=== PATIENT | female | born 1990 ===

== ENCOUNTER 2018-02-26 13:31 | Inpatient (IN) | payer OTHER ==
[2018-02-26] MEDS ORDERED: Naloxone 0.4 mg/ml Inj (Adult) ONE ×2 (13:58→14:02)
[2018-02-26 14:08] LABS: HEMOGLOBIN 8.9 g/dL (12.0-16.0); MEAN CELL VOLUME 77.6 fl (81.0-99.0); MEAN CORPUSCULAR HEMOGLOBIN 25.5 pg (27.0-31.0); MEAN CORPUSCULAR HGB CONC 32.8 g/dL (33.0-37.0); RBC 3.49 Mil/uL (3.80-5.20); RED CELL DISTRIBUTION WIDTH 14.2 % (11.5-14.5); WHITE BLOOD COUNT 8.5 K/uL (4.8-10.8)
[2018-02-26] MEDS ORDERED: Iohexol 300 100 ML IJ ONE (14:09)
[2018-02-26] MEDS ORDERED: Sodium Chloride 0.9% 100 ML ONE (14:10)
[2018-02-26 14:11] LABS: PROTHROMBIN TIME 10.6 Seconds (9.8-13.1)
--- NOTE | 2018-02-26 14:14 | ED PDOC ---
Syncope/Near Syncope/Dizziness Time Seen by Provider: 02/26/18 13:43 Chief Complaint (Nursing): Weakness/Neurological Deficit Chief Complaint (Provider): Weakness/Neurological Deficit History Per: Patient History/Exam Limitations: no limitations Onset/Duration Of Symptoms: Mins Current Symptoms Are (Timing): Still Present Activity At Onset Of Symptoms: Sitting (Driving) Associated Symptoms Preceding Syncopal Episode: Lightheadedness Additional Complaint(s): 27 y/o female with an unknown PMHx brought to the ED via EMS for evaluation of a near syncope episode. Patient was driving when she developed low back pain and feeling like she was going to pass out. Patient reports she pulled over and family called 911. Patient reports of having similar episode in the past. Patient states she is approximately 24 weeks and has not had care yet. On arrival to the ED patient appeared diaphoretic and lethargic but is arousable to verbal stimuli. Denies chest pain, shortness of breath, abdominal pain and vaginal bleeding. Patient did have urinary incontinence while in the ED. PMD: Kelvin Rudolph DO Past Medical History Reviewed: Historical Data, Nursing Documentation, Vital Signs Vital Signs: Last Vital Signs Temp 97.8 F 02/26/18 13:35 Pulse 103 H 02/26/18 13:35 Resp 19 02/26/18 13:35 BP 116/59 L 02/26/18 13:35 Pulse Ox 100 02/26/18 13:35 - Medical History PMH: No Chronic Diseases - Surgical History Surgical History: No Surg Hx - Family History Family History: States: Unknown Family Hx - Allergies Allergies/Adverse Reactions: Allergies Allergy/AdvReac Type Severity Reaction Status Date / Time No Known Allergies Allergy Verified 02/26/18 13:35 Review of Systems ROS Statement: Except As Marked, All Systems Reviewed And Found Negative Constitutional: Positive for: Weakness Cardiovascular: Negative for: Chest Pain Respiratory: Negative for: Shortness of Breath Genitourinary Female: Positive for: Incontinence. Negative for: Vaginal Bleeding Musculoskeletal: Positive for: Back Pain (low) Physical Exam - Reviewed Nursing Documentation Reviewed: Yes Vital Signs Reviewed: Yes (REPEAT BP: 89/60) - Physical Exam Appears: Positive for: In Acute Distress Head Exam: Positive for: ATRAUMATIC Skin: Positive for: Diaphoresis (on arrival to the ED), Pallor Eye Exam: Positive for: Other (Pinpoint pupils) Neck: Positive for: Normal Cardiovascular/Chest: Positive for: Regular Rate, Rhythm. Negative for: Murmur Respiratory: Positive for: Normal Breath Sounds. Negative for: Respiratory Distress Gastrointestinal/Abdominal: Positive for: Normal Exam, Other (Gravid). Negative for: Tenderness Back: Positive for: Normal Inspection, Other (Tenderness to palpation to the lower lumbar region. No ecchymosis) Extremity: Positive for: Normal ROM Neurologic/Psych: Positive for: Oriented (x3), Other (lethargic but responsive to verbal stimulti) - Laboratory Results Result Diagrams: 02/27/18 04:20 02/27/18 04:20 - ECG O2 Sat by Pulse Oximetry: 100 (RA) Pulse Ox Interpretation: Normal - Physician Consult Information Time Consulting Physican Contacted: 15:40 Physician Contacted: Reese Hernandez Outcome Of Conversation: Recommends MgSO4 1 g IV once, MRI brain and EEG. No seizure medication needed at this time. - Critical Care Total Time (In Min): 75 Medical Decision Making Medical Decision Making: Time: 1349 Plan: -- CBC -- PT/INR -- CMP -- Type and Screen Time: 1357 Plan: -- US OB Time: 1400 -- OB arrived to evaluate patient. Time: 1410 Plan: -- Arterial Blood Gas -- CT Chest, Abd, Pel w/ IV Contrast -- CT Head w/o Contrast -- Alcohol Serum -- Urine Drug Screen -- US OB , Limited Time: [address] RESULTS FINDINGS: HEMORRHAGE: No intracranial hemorrhage. BRAIN: No mass effect or edema. No atrophy or chronic microvascular ischemic changes. VENTRICLES: Unremarkable. No hydrocephalus. CALVARIUM: Unremarkable. PARANASAL SINUSES: Unremarkable as visualized. No significant inflammatory changes. MASTOID AIR CELLS: Unremarkable as visualized. No inflammatory changes. OTHER FINDINGS: None. IMPRESSION: Normal CT of the Head. Time: 1531 -- Mom and dad at bedside. Patient states she DOES NOT want family members to know of status. Mother states she was in the car with the patient at the time of the incident. Mother reports patient began feeling lightheaded and pulled over to the side of the road, got out and went to the other side of the car. Mother states the patient looked pale and doubled over into her seat twice. Mother was able to get the patient into the back seat and then patient began having seizure activity for approximately 3 minutes. Mother states patient was drooling and her eyes rolled into the back of her head. Mother states seizure activity stopped on its own. Pt reports she is 24 weeks gestation, , care in [place]. Time: 1532 CT CHEST/ABDOMEN/PELVIS RESULTS CT CHEST: FINDINGS: CT CHEST WITH CONTRAST: LUNGS: Clear. No nodule, mass or consolidation. MEDIASTINUM: Unremarkable. Normal caliber aorta and pulmonary arterial trunk. No aortic dissection. Normal size heart. LYMPH NODES: Unremarkable. PLEURA: Unremarkable. No pneumothorax. No pleural fluid. BONES: Unremarkable. OTHER FINDINGS: None. CT ABDOMEN AND PELVIS: LIVER: Unremarkable. No gross lesion or ductal dilatation. GALLBLADDER AND BILE DUCTS: Unremarkable. PANCREAS: Unremarkable. No gross lesion or ductal dilatation. SPLEEN: Unremarkable. ADRENALS: Unremarkable. No mass. KIDNEYS AND URETERS: Unremarkable. No hydronephrosis. No solid mass. VASCULATURE: Unremarkable. No aortic aneurysm. BOWEL: Unremarkable. No obstruction. No gross mural thickening. APPENDIX: Normal appendix. PERITONEUM: Unremarkable. No free fluid. No free air. LYMPH NODES: Unremarkable. No enlarged lymph nodes. BLADDER: Unremarkable. REPRODUCTIVE: Gravid uterus.. BONES: No acute fracture. OTHER FINDINGS: None. IMPRESSION: Gravid utreus. Upon arrival, pt lethargic, pale, diaphoretic, hypotensive. Pt solely c/o low back pain. Bedside OB ultrasound performed, + cardiac activity. Pt arousable to verbal stimuli, oriented X 3. Discussed the risks and benefits of CT head/chest/abd/pelvis and radiation risk to fetus. Pt provided verbal consent to CT as witnessed by RNs present. Time: 15:[address] Barton, recommends Fe 325 mg PO bid, no transfusion, NST q shift, will consult. ____ Scribe Attestation: Documented by Shay Curtis acting as a scribe for Geovanna Almonte MD. Provider Scribe Attestation: All medical record entries made by the Scribe were at my direction and personally dictated by me. I have reviewed the chart and agree that the record accurately reflects my personal performance of the history, physical exam, medical decision making, and the department course for this patient. I have also personally directed, reviewed, and agree with the discharge instructions and disposition. Disposition - Clinical Impression Clinical Impression: New onset seizure - Patient ED Disposition Is Patient to be Admitted: Yes - Disposition Disposition Time: 15:38 Condition: GUARDED - Pt Status Changed To: Hospital Disposition Of: Inpatient - Admit Certification Admit to Inpatient:: After my assessment, the patient will require hospitalization for at least two midnights. This is because of the severity of symptoms shown, intensity of services needed, and/or the medical risk in this patient being treated as an outpatient. - POA Present On Arrival: None
[2018-02-26 14:16] LABS: ALB/GLOB RATIO 0.9 (1.0-2.1); ALBUMIN 3.2 g/dL (3.5-5.0); ALT/SGPT 20 U/L (9-52); AST/SGOT 25 U/L (14-36); BLOOD UREA NITROGEN 5 mg/dl (7-17); GFR NON-AFRICAN AMERICAN > 60
--- NOTE | 2018-02-26 14:29 | CT ---
Date of service: 02/26/2018 PROCEDURE: CT HEAD WITHOUT CONTRAST. HISTORY: Syncope/[place]red Mental Status COMPARISON: None available. TECHNIQUE: Axial computed tomography images were obtained through the head/brain without intravenous contrast. Radiation dose: Total exam DLP = mGy-cm. This CT exam was performed using one or more of the following dose reduction techniques: Automated exposure control, adjustment of the mA and/or kV according to patient size, and/or use of iterative reconstruction technique. FINDINGS: HEMORRHAGE: No intracranial hemorrhage. BRAIN: No mass effect or edema. No atrophy or chronic microvascular ischemic changes. VENTRICLES: Unremarkable. No hydrocephalus. CALVARIUM: Unremarkable. PARANASAL SINUSES: Unremarkable as visualized. No significant inflammatory changes. MASTOID AIR CELLS: Unremarkable as visualized. No inflammatory changes. OTHER FINDINGS: None. IMPRESSION: Normal CT of the Head.
[2018-02-26] MEDS ORDERED: Sodium Chloride 0.9% 1,000 ML IV STA (14:43)
[2018-02-26] MEDS ORDERED: Naloxone 0.4 mg/ml Inj (Adult) IVP STA ×2 (14:43→14:44)
[2018-02-26] MEDS ORDERED: Lactated Ringer's 1,000 ML IV SCH (14:45)
[2018-02-26 15:01] LABS: SQUAMOUS EPITHIAL 35 /hpf (0-5); URINE BACTERIA OCC (<OCC); URINE BILIRUBIN NEGATIVE (NEGATIVE); URINE BLOOD SMALL (NEGATIVE); URINE CLARITY CLOUDY (Clear); URINE COLOR YELLOW (YELLOW); URINE GLUCOSE (UA) 50 mg/dL (Normal); URINE LEUKOCYTE ESTERASE NEG Leu/uL (Negative); URINE PROTEIN >=500 mg/dL (NEGATIVE); URINE UROBILINOGEN 0.2-1.0 mg/dL (0.2-1.0)
[2018-02-26 15:13] LABS: BARBITURATES, UR NEGATIVE (NEGATIVE); BENZODIAZEPINES, UR NEGATIVE (NEGATIVE); OPIATES, UR NEGATIVE (NEGATIVE); PHENCYCLIDINE, UR NEGATIVE (NEGATIVE)
--- NOTE | 2018-02-26 15:33 | CT ---
Date of service: 02/26/2018 PROCEDURE: CT Chest, Abdomen and Pelvis with intravenous contrast HISTORY: , syncope COMPARISON: None available. TECHNIQUE: IV dose administered: 100 cc of IV Contrast Radiation dose: Total exam DLP = 1059 mGy-cm. This CT exam was performed using one or more of the following dose reduction techniques: Automated exposure control, adjustment of the mA and/or kV according to patient size, and/or use of iterative reconstruction technique. Reading radiologist not consulted prior to examination for authorization. FINDINGS: CT CHEST WITH CONTRAST: LUNGS: Clear. No nodule, mass or consolidation. MEDIASTINUM: Unremarkable. Normal caliber aorta and pulmonary arterial trunk. No aortic dissection. Normal size heart. LYMPH NODES: Unremarkable. PLEURA: Unremarkable. No pneumothorax. No pleural fluid. BONES: Unremarkable. OTHER FINDINGS: None. CT ABDOMEN AND PELVIS: LIVER: Unremarkable. No gross lesion or ductal dilatation. GALLBLADDER AND BILE DUCTS: Unremarkable. PANCREAS: Unremarkable. No gross lesion or ductal dilatation. SPLEEN: Unremarkable. ADRENALS: Unremarkable. No mass. KIDNEYS AND URETERS: Unremarkable. No hydronephrosis. No solid mass. VASCULATURE: Unremarkable. No aortic aneurysm. BOWEL: Unremarkable. No obstruction. No gross mural thickening. APPENDIX: Normal appendix. PERITONEUM: Unremarkable. No free fluid. No free air. LYMPH NODES: Unremarkable. No enlarged lymph nodes. BLADDER: Unremarkable. REPRODUCTIVE: Gravid uterus.. BONES: No acute fracture. OTHER FINDINGS: None. IMPRESSION: Gravid utreus.
[2018-02-26] MEDS ORDERED: Magnesium Sulfate 1 GM in Dextrose 5% In Water 100 ML IVPB STA (15:39)
[2018-02-26] MEDS ORDERED: Magnesium Sulfate 2 gm/50 ml 2 GM/50 ML BAG ONE (15:57)
[2018-02-26] MEDS ORDERED: cefTRIAXone (Rocephin) 1 gm Inj ONE (15:57)
--- NOTE | 2018-02-26 16:26 | CP.PCM.HP ---
<MaikelYemi - Last Filed: 02/26/18 17:02> History of Present Illness - History of Present Illness History of Present Illness: Hx taken from patient and ER attendant Full code PMD: Kelvin Rudolph DO 7 y/o female with no significant PMHx was brought to the ED via EMS for evaluation of a syncope episode and suspected seizures. Patient was driving when she started feeling lightheaded and feeling like she was going to pass out. Patient reports she pulled over and family called 911. She attempted to walk and lie down in the back seat but passed out. Parent tried to help her inside the car and mother states she had a short episode of whole body tremulousness, rigidity and her eyes rolled back. Patient reports of having similar episode of syncope in the past in the past but denies hx of seizures. Patient states she is approximately 24 weeks and has not had care yet, she doesn't want her parent to know about her status. On arrival to the ED patient appeared diaphoretic and lethargic but was arousable to verbal stimuli. Patient did have urinary incontinence while in the ED. At the time of exam patient is asymptomatic and has no complains. She is taking vitamins but denies any other medications. ER course: VS remarkable for HR around 100s, BP 116/59 labs remarkable for hgb 8.9, UTox neg, UA + for WBC, RBC, Bact, spec gravity 1053, K 3.5 CT abd pelvis: Uterus gravidus CT head unremarkable Neuro consulted: Mg IV 1g ordered IV fluid bolus NS Narcan, Ceftriaxone and Iron PO PMHX: Denies SXHx: Gastric bypass Sx in 2017 SHx: Denies ETOH,drugs or Tobacco FHx: Grandfather Hx of seizures OBHx: Patient is around 24 weeks with no care. Unsure about LMP Present on Admission - Present on Admission Any Indicators Present on Admission: No Review of Systems - Review of Systems All systems: reviewed and no additional remarkable complaints except (Those described on HPI) Past Patient History - Past Social History Smoking Status: Unknown If Ever Smoked Alcohol: None Drugs: Denies - CARDIAC Hx Cardiac Disorders: No - PULMONARY Hx Respiratory Disorders: No - NEUROLOGICAL Hx Neurological Disorder: Yes Hx Syncope: Yes - RENAL Hx Chronic Kidney Disease: No - ENDOCRINE/METABOLIC Hx Endocrine Disorders: No - HEMATOLOGICAL/ONCOLOGICAL Hx Blood Disorders: No - INTEGUMENTARY Hx Dermatological Problems: No - MUSCULOSKELETAL/RHEUMATOLOGICAL Hx Musculoskeletal Disorders: No - GASTROINTESTINAL Hx Gastrointestinal Disorders: Yes - GENITOURINARY/GYNECOLOGICAL Hx Genitourinary Disorders: No - PSYCHIATRIC Hx Psychophysiologic Disorder: No Hx Substance Use: (unknown) - SURGICAL HISTORY Hx Surgeries: Yes Hx Gastric Bypass Surgery: Yes - ANESTHESIA Hx Anesthesia: Yes Meds Allergies/Adverse Reactions: Allergies Allergy/AdvReac Type Severity Reaction Status Date / Time No Known Allergies Allergy Verified 02/26/18 13:35 Physical Exam - Constitutional Appears: Non-toxic, No Acute Distress - Eye Exam Eye Exam: EOMI, PERRL - ENT Exam ENT Exam: Mucous Membranes Moist - Neck Exam Neck exam: Positive for: Full Rom. Negative for: Tenderness, Thyromegaly - Respiratory Exam Respiratory Exam: Clear to Auscultation Bilateral, NORMAL BREATHING PATTERN. absent: Chest Wall Tenderness, Decreased Breath Sounds, Rhonchi, Wheezes, Respiratory Distress - Cardiovascular Exam Cardiovascular Exam: REGULAR RHYTHM, +S1, +S2 - GI/Abdominal Exam GI & Abdominal Exam: Normal Bowel Sounds, Soft. absent: Guarding, Rebound, Tenderness Additional comments: Uterus gravidarum. - Extremities Exam Extremities exam: Positive for: normal capillary refill, normal inspection. Negative for: calf tenderness, pedal edema, tenderness - Neurological Exam Neurological exam: Alert, Oriented x3, Reflexes Normal - Psychiatric Exam Psychiatric exam: Normal Affect, Normal Mood - Skin Skin Exam: Pallor, Warm Results - Vital Signs Recent Vital Signs: Last Vital Signs Temp 97.8 F 02/26/18 13:35 Pulse 71 02/26/18 16:16 Resp 16 02/26/18 16:16 BP 137/75 02/26/18 16:16 Pulse Ox 100 02/26/18 16:16 - Labs Result Diagrams: 02/26/18 13:50 02/26/18 13:50 Labs: Laboratory Results - last 24 hr 02/26/18 02/26/18 02/26/18 13:50 13:50 13:50 WBC 8.5 RBC 3.49 L Hgb 8.9 L Hct 27.1 L MCV 77.6 L MCH 25.5 L MCHC 32.8 L RDW 14.2 Plt Count 271 PT 10.6 INR 1.0 Sodium Potassium Chloride Carbon Dioxide Anion Gap BUN Creatinine Est GFR ( Amer) Est GFR (Non-Af Amer) Random Glucose Calcium Total Bilirubin AST ALT Alkaline Phosphatase Total Protein Albumin Globulin Albumin/Globulin Ratio Urine Color Urine Clarity Urine pH Ur Specific [place] Urine Protein Urine Glucose (UA) Urine Ketones Urine Blood Urine Nitrate Urine Bilirubin Urine Urobilinogen Ur Leukocyte Esterase Urine RBC (Auto) Urine Microscopic WBC Ur Squamous Epith Cells Urine Bacteria Urine Opiates Screen Urine Methadone Screen Ur Barbiturates Screen Ur Phencyclidine Scrn Ur Amphetamines Screen U Benzodiazepines Scrn U Oth Cocaine Metabols U Cannabinoids Screen Alcohol, Quantitative Blood Type A NEGATIVE Antibody Screen Negative BBK History Checked No verified bt 02/26/18 02/26/18 02/26/18 13:50 14:10 14:51 WBC RBC Hgb Hct MCV MCH MCHC RDW Plt Count PT INR Sodium 136 Potassium 3.5 L Chloride 109 H Carbon Dioxide 21 L Anion Gap 10 BUN 5 L Creatinine 0.8 Est GFR ( Amer) > 60 Est GFR (Non-Af Amer) > 60 Random Glucose 110 H Calcium 9.0 Total Bilirubin 0.4 AST 25 ALT 20 Alkaline Phosphatase 83 Total Protein 6.7 Albumin 3.2 L Globulin 3.5 Albumin/Globulin Ratio 0.9 L Urine Color Urine Clarity Urine pH Ur Specific [place] Urine Protein Urine Glucose (UA) Urine Ketones Urine Blood Urine Nitrate Urine Bilirubin Urine Urobilinogen Ur Leukocyte Esterase Urine RBC (Auto) Urine Microscopic WBC Ur Squamous Epith Cells Urine Bacteria Urine Opiates Screen Negative Urine Methadone Screen Negative Ur Barbiturates Screen Negative Ur Phencyclidine Scrn Negative Ur Amphetamines Screen Negative U Benzodiazepines Scrn Negative U Oth Cocaine Metabols Negative U Cannabinoids Screen Negative Alcohol, Quantitative < 10 Blood Type Antibody Screen BBK History Checked 02/26/18 14:51 WBC RBC Hgb Hct MCV MCH MCHC RDW Plt Count PT INR Sodium Potassium Chloride Carbon Dioxide Anion Gap BUN Creatinine Est GFR ( Amer) Est GFR (Non-Af Amer) Random Glucose Calcium Total Bilirubin AST ALT Alkaline Phosphatase Total Protein Albumin Globulin Albumin/Globulin Ratio Urine Color Yellow Urine Clarity Cloudy Urine pH 6.0 Ur Specific [place] 1.053 H Urine Protein >=500 Urine Glucose (UA) 50 Urine Ketones Negative Urine Blood Small Urine Nitrate Negative Urine Bilirubin Negative Urine Urobilinogen 0.2-1.0 Ur Leukocyte Esterase Neg Urine RBC (Auto) 50 H Urine Microscopic WBC 29 H Ur Squamous Epith Cells 35 H Urine Bacteria Occ H Urine Opiates Screen Urine Methadone Screen Ur Barbiturates Screen Ur Phencyclidine Scrn Ur Amphetamines Screen U Benzodiazepines Scrn U Oth Cocaine Metabols U Cannabinoids Screen Alcohol, Quantitative Blood Type Antibody Screen BBK History Checked Assessment & Plan - Assessment and Plan (Free Text) Assessment: 27 y/o F with unknown PMHx presented with syncope episode Syncope acute Vasovagal vs Seizures vs Anemia in a woman or combination Neuro consulted Cardio consulted coin machine operator consulted Mg IV 1 g as per Neuro CT head neg VS stable MRI of the brain ordered Echo ordered Hgb 8.9. Iron po given on ER Start iron PO and C/W PNV Seizure episode Suspected As per family had tonic/clonic episode after Syncope Seem that was postictal when arrived to ER Had urinary incontinence episode at ER MG 1 g IV as per Neuro EEG ordered F/U neuro recs Patient is Anemia Unknown if chronic Patient is and with Hx of gastric bypass Sx Hgb 8.9 F/U Vitamin b12, folate and ferritin No care Doesnt want family to be aware Was taking PNV Approximately 24 weeks F/U COPY OPERATOR recs CT abd and pelvic shows fetus DVT prophylaxis SCD and Ambulation for now due to anemia <Choi,Lee D - Last Filed: 02/27/18 09:30> Results - Vital Signs Recent Vital Signs: Last Vital Signs Temp 98.0 F 02/27/18 07:41 Pulse 80 02/27/18 07:41 Resp 20 02/27/18 07:41 BP 139/76 02/27/18 07:41 Pulse Ox 100 02/27/18 07:41 - Labs Result Diagrams: 02/27/18 04:20 02/27/18 04:20 Labs: Laboratory Results - last 24 hr 02/26/18 02/26/18 02/26/18 13:50 13:50 13:50 WBC 8.5 RBC 3.49 L Hgb 8.9 L Hct 27.1 L MCV 77.6 L MCH 25.5 L MCHC 32.8 L RDW 14.2 Plt Count 271 PT 10.6 INR 1.0 Sodium Potassium Chloride Carbon Dioxide Anion Gap BUN Creatinine Est GFR ( Amer) Est GFR (Non-Af Amer) Random Glucose Calcium Magnesium Ferritin Total Bilirubin AST ALT Alkaline Phosphatase Total Protein Albumin Globulin Albumin/Globulin Ratio Vitamin B12 Free T4 Total T3 TSH 3rd Generation Urine Color Urine Clarity Urine pH Ur Specific [place] Urine Protein Urine Glucose (UA) Urine Ketones Urine Blood Urine Nitrate Urine Bilirubin Urine Urobilinogen Ur Leukocyte Esterase Urine RBC (Auto) Urine Microscopic WBC Ur Squamous Epith Cells Urine Bacteria Urine Opiates Screen Urine Methadone Screen Ur Barbiturates Screen Ur Phencyclidine Scrn Ur Amphetamines Screen U Benzodiazepines Scrn U Oth Cocaine Metabols U Cannabinoids Screen Alcohol, Quantitative Blood Type A NEGATIVE Blood Type Confirm Antibody Screen Negative BBK History Checked No verified bt 02/26/18 02/26/18 02/26/18 13:50 14:10 14:51 WBC RBC Hgb Hct MCV MCH MCHC RDW Plt Count PT INR Sodium 136 Potassium 3.5 L Chloride 109 H Carbon Dioxide 21 L Anion Gap 10 BUN 5 L Creatinine 0.8 Est GFR ( Amer) > 60 Est GFR (Non-Af Amer) > 60 Random Glucose 110 H Calcium 9.0 Magnesium Ferritin Total Bilirubin 0.4 AST 25 ALT 20 Alkaline Phosphatase 83 Total Protein 6.7 Albumin 3.2 L Globulin 3.5 Albumin/Globulin Ratio 0.9 L Vitamin B12 Free T4 Total T3 TSH 3rd Generation Urine Color Urine Clarity Urine pH Ur Specific [place] Urine Protein Urine Glucose (UA) Urine Ketones Urine Blood Urine Nitrate Urine Bilirubin Urine Urobilinogen Ur Leukocyte Esterase Urine RBC (Auto) Urine Microscopic WBC Ur Squamous Epith Cells Urine Bacteria Urine Opiates Screen Negative Urine Methadone Screen Negative Ur Barbiturates Screen Negative Ur Phencyclidine Scrn Negative Ur Amphetamines Screen Negative U Benzodiazepines Scrn Negative U Oth Cocaine Metabols Negative U Cannabinoids Screen Negative Alcohol, Quantitative < 10 Blood Type Blood Type Confirm Antibody Screen BBK History Checked 02/26/18 02/26/18 02/26/18 14:51 15:30 20:36 WBC RBC Hgb Hct MCV MCH MCHC RDW Plt Count PT INR Sodium Potassium Chloride Carbon Dioxide Anion Gap BUN Creatinine Est GFR ( Amer) Est GFR (Non-Af Amer) Random Glucose Calcium Magnesium Ferritin 5.9 L Total Bilirubin AST ALT Alkaline Phosphatase Total Protein Albumin Globulin Albumin/Globulin Ratio Vitamin B12 365 Free T4 Total T3 TSH 3rd Generation Urine Color Yellow Urine Clarity Cloudy Urine pH 6.0 Ur Specific [place] 1.053 H Urine Protein >=500 Urine Glucose (UA) 50 Urine Ketones Negative Urine Blood Small Urine Nitrate Negative Urine Bilirubin Negative Urine Urobilinogen 0.2-1.0 Ur Leukocyte Esterase Neg Urine RBC (Auto) 50 H Urine Microscopic WBC 29 H Ur Squamous Epith Cells 35 H Urine Bacteria Occ H Urine Opiates Screen Urine Methadone Screen Ur Barbiturates Screen Ur Phencyclidine Scrn Ur Amphetamines Screen U Benzodiazepines Scrn U Oth Cocaine Metabols U Cannabinoids Screen Alcohol, Quantitative Blood Type Blood Type Confirm A NEGATIVE Antibody Screen BBK History Checked 02/27/18 02/27/18 02/27/18 04:20 04:20 04:20 WBC 7.6 RBC 3.18 L Hgb 8.1 L Hct 24.7 L MCV 77.6 L MCH 25.5 L MCHC 32.9 L RDW 14.5 Plt Count 205 PT INR Sodium 138 Potassium 3.5 L Chloride 111 H Carbon Dioxide 26 Anion Gap 5 L BUN 2 L Creatinine 0.6 L Est GFR ( Amer) > 60 Est GFR (Non-Af Amer) > 60 Random Glucose 64 L Calcium 8.4 Magnesium 2.1 Ferritin Total Bilirubin AST ALT Alkaline Phosphatase Total Protein Albumin Globulin Albumin/Globulin Ratio Vitamin B12 Free T4 1.19 Total T3 1.13 L TSH 3rd Generation 1.26 Urine Color Urine Clarity Urine pH Ur Specific [place] Urine Protein Urine Glucose (UA) Urine Ketones Urine Blood Urine Nitrate Urine Bilirubin Urine Urobilinogen Ur Leukocyte Esterase Urine RBC (Auto) Urine Microscopic WBC Ur Squamous Epith Cells Urine Bacteria Urine Opiates Screen Urine Methadone Screen Ur Barbiturates Screen Ur Phencyclidine Scrn Ur Amphetamines Screen U Benzodiazepines Scrn U Oth Cocaine Metabols U Cannabinoids Screen Alcohol, Quantitative Blood Type Blood Type Confirm Antibody Screen BBK History Checked Attending/Attestation - Attestation I have personally seen and examined this patient.: Yes I have fully participated in the care of the patient.: Yes I have reviewed all pertinent clinical information: Yes
--- NOTE | 2018-02-26 19:04 | CP.PCM.CON ---
History of Present Illness - History of Present Illness History of Present Illness: 27 y/o female with syncope episode and suspected seizures. Patient was driving when she started hot, flushed, followed by blurry vision and then lightheaded. Patient reports she pulled over and family called 911. Pt then had whole body tremulousness, rigidity and her eyes rolled back. there was LOC, no bowel or bladder incontinence. denies cp, palp, sob, edema, orthopnea, pnd. Patient reports of having similar episode 1 week ago at work, she layed flat and did not pass out. Her first episode occured while she was drawing blood from a pt. this episode occured while arguing with her father. she denies hx of seizures. She has a hx of pre-eclampsia w her first 10 yrs ago. On arrival to the ED patient appeared diaphoretic and lethargic but was arousable to verbal stimuli. Patient did have urinary incontinence while in the ED. She admits to similar symptoms in er, however unsure if she had loc. she denies etoh, drug, or tob use. no herbals or otc (except pnv) Review of Systems - Constitutional Constitutional: As Per HPI. absent: Anorexia, Chills, Daytime Sleepiness, Excessive Sweating, Fatigue, Fever, Frequent Falls, Headache, Increased Appetite , Lethargy, Malaise, Night Sweats, Snoring, Sleep Apnea, Weight Gain, Weight Loss, Weakness, Other - EENT Eyes: As Per HPI, Blurred Vision. absent: Blind Spots, Change in Vision, Decreased Night Vision, Diplopia, Discharge, Dry Eye, Exophthalmos, Floaters, Irritation, Itchy Eyes, Loss of Peripheral Vision, Pain, Photophobia, Requires Corrective Lenses, Sees Flashes, Spots in Vision, Tunnel Vision, Other Visual Disturbances, Loss of Vision, Other Ears: As Per HPI, Dizziness. absent: Decreased Hearing, Ear Discharge, Ear Pain , Tinnitus, Abnormal Hearing, Disequilibrium, Other Nose/Mouth/Throat: As Per HPI. absent: Epistaxis, Nasal Congestion, Nasal Discharge, Nasal Obstruction, Nasal Trauma, Nose Pain, Post Nasal Drip, Sinus Pain, Sinus Pressure, Bleeding Gums, Change in Voice, Dental Pain, Dry Mouth, Dysphagia, Halitosis, Hoarsness, Lip Swelling, Mouth Lesions, Mouth Pain, Odynophagia, Sore Throat, Throat Swelling, Tongue Swelling, Facial Pain, Neck Pain, Neck Mass, Other - Breasts Breasts: As Per HPI. absent: Change in Shape, Mass, Pain, Nipple Discharge, Nipple Inversion, Skin Changes, Swelling, Other - Cardiovascular Cardiovascular: As Per HPI. absent: Acrocyanosis, Chest Pain, Chest Pain at Rest, Chest Pain with Activity, Claudication, Diaphoresis, Dyspnea, Dyspnea on Exertion, Edema, Irregular Heart Rhythm, Pain Radiating to Arm/Neck/Jaw, Leg Edema, Leg Ulcers, Lightheadedness, Orthopnea, Palpitations, Paroxysmal Nocturnal Dyspnea, Pedal Edema, Radiating Pain, Rapid Heart Rate, Slow Heart Rate, Syncope, Other - Respiratory Respiratory: As Per HPI. absent: Cough, Dyspnea, Hemoptysis, Dyspnea on Exertion, Wheezing, Snoring, Stridor, Pain on Inspiration, Chest Congestion, Excessive Mucous Production, Change in Mucous Color, Pain with Coughing, Other - Gastrointestinal Gastrointestinal: As Per HPI. absent: Abdominal Pain, Belching, Bloating, Change in Bowel Habits, Change in Stool Character, Coffee Ground Emesis, Constipation, Cramping, Diarrhea, Dyspepsia, Dysphagia, Early Satiety, Excessive Flatus, Fecal Incontinence, Heartburn, Hematemesis, Hematochezia, Loose Stools, Melena, Nausea, Odynophagia, Temesmus, Vomiting, Other - Genitourinary Genitourinary: As Per HPI, Urinary Incontinence. absent: Change in Urinary Stream, Difficulty Urinating, Dysuria, Flank Pain, Hematuria, Pyuria, Nocturia, Urinary Frequency, Urinary Hesitance, Urinary Urgency, Voiding Freq/Small Amts, Freq UTI, Hx Renal/Bladder Calculi, Hx /Renal Surgery, Bladder Distension, Other - Reproductive: Female Reproductive:Female: As Per HPI. absent: Amenorrhea, Amenorrhea/ Control, Currently Menstual, Cycle <21 Days, Cycle >35 Days, Cycle Variable, Menses 1-7 Days, Menses >/= 8 Days, Menses Variable, Cycle > 4 Weeks Between, No Menses for 6 Months, Heavy Menses, Light Menses, Normal Menses, Spotting Between Cycles , S/P Hysterectomy, Menopausal, Post Menopausal, Premenarche, Abnormal Vaginal Bleeding, Dysmenorrhea, Dyspareunia, Genital Lesions, Genital Pruritis, Pelvic Pain, Prolapse Symptoms, Sexual Dysfunction, Vaginal Discharge, Vaginal Dryness , Vaginal Odor, Vaginal Pruritis, Other - Menstruation Menstruation: As Per HPI. absent: Amenorrhea, Amenorrhea/ Control, Currently Menstual, Cycle <21 Days, Cycle >35 Days, Cycle Variable, Menses 1-7 Days, Menses >/= 8 Days, Menses Variable, Cycle > 4 Weeks Between, No Menses for 6 Months, Heavy Menses, Light Menses, Normal Menses, Spotting Between Cycles , S/P Hysterectomy, Menopausal, Post Menopausal, Premenarche, Abnormal Vaginal Bleeding, Dysmenorrhea, Other - Musculoskeletal Musculoskeletal: As Per HPI. absent: Abnormal Gait, Arthralgias, Atrophy, Back Pain, Deformity, Joint Swelling, Limited Range of Motion, Loss of Height, Muscle Cramps, Muscle Weakness, Myalgias, Neck Pain, Numbness, Radiating Pain into Limb, Stiffness, Tingling, Other - Integumentary Integumentary: As Per HPI. absent: Acne, Alopecia, Bleeding Lesions, Change in Hair, Change in Nails, Change in Pigmentation, Changing Lesions, Dry Skin, Erythema, Furuncle, Hirsutism, Lesions, New Lesions, Non-Healing Lesions, Photosensitivity, Pruritus, Rash, Skin Pain, Skin Ulcer, Sores, Striae, Swelling , Unusual Bruising, Wounds, Jaundice, Other - Neurological Neurological: As Per HPI, Syncope. absent: Abnormal Gait, Abnormal Hearing, Abnormal Movements, Abnormal Speech, Behavioral Changes, Burning Sensations, Confusion, Convulsions, Disequilibrium, Dizziness, Numbness, Focal Weakness, Frequent Falls, Headaches, Lack of Coordination, Loss of Vision, Memory Loss, Paresthesias, Radicular Pain, Restless Legs, Sensory Deficit, Tingling, Tremor, Vertigo, Weakness, Other Visual Disturbances, Other - Psychiatric Psychiatric: As Per HPI. absent: Abnormal Sleep Pattern, Anhedonia, Anxiety, Auditory Hallucinations, Behavioral Changes, Change in Appetite, Change in Libido, Confusion, Depression, Difficulty Concentrating, Hallucinations, Homicidal Ideation, Hopelessness, Irritability, Memory Loss, Mood Swings, Panic Attacks, Paranoia, Suicidal Ideation, Visual Hallucinations, Tactile Hallucinations, Other - Endocrine Endocrine: As Per HPI, Flushing. absent: Change in Body Appearance, Change in Libido, Cold Intolorance, Deepening of Voice, Excessive Sweating, Fatigue, Heat Intolorance, Increase in Ring/Shoe/Hat Size, Palpitations, Polydipsia, Polyphagia, Polyuria, Other - Hematologic/Lymphatic Hematologic: As Per HPI. absent: Easy Bleeding, Easy Bruising, Lymphadenopathy , Other Past Patient History - Past Medical History & Family History Past Medical History?: Yes - Past Social History Smoking Status: Never Smoked Chewing Tobacco Use: No Cigar Use: No Alcohol: None Drugs: Denies Home Situation {Lives}: With Family Domestic Violence: Negative - CARDIAC Hx Cardiac Disorders: No - PULMONARY Hx Respiratory Disorders: No - NEUROLOGICAL Hx Neurological Disorder: No - HEENT Hx HEENT Problems: No - RENAL Hx Chronic Kidney Disease: No - ENDOCRINE/METABOLIC Hx Endocrine Disorders: No - HEMATOLOGICAL/ONCOLOGICAL Hx Blood Disorders: No - INTEGUMENTARY Hx Dermatological Problems: No - MUSCULOSKELETAL/RHEUMATOLOGICAL Hx Musculoskeletal Disorders: No Hx Falls: No - GASTROINTESTINAL Hx Gastrointestinal Disorders: No - GENITOURINARY/GYNECOLOGICAL Hx Genitourinary Disorders: No - PSYCHIATRIC Hx Psychophysiologic Disorder: No Hx Substance Use: No - SURGICAL HISTORY Hx Surgeries: Yes Hx Cholecystectomy: Yes Hx Gastric Bypass Surgery: Yes (sleeve Jul 2016) - ANESTHESIA Hx Anesthesia: Yes Hx Anesthesia Reactions: No Hx Malignant Hyperthermia: No Has any member of the family had a problem w/ anesthesia?: No Meds Allergies/Adverse Reactions: Allergies Allergy/AdvReac Type Severity Reaction Status Date / Time No Known Allergies Allergy Verified 02/26/18 13:35 - Medications Medications: Current Medications Ferrous Sulfate (Feosol) 325 mg PO DAILY [facility] Multivit/Folic Acid/Iron () 1 tab PO DAILY [facility] Physical Exam - Head Exam Head Exam: ATRAUMATIC, NORMAL INSPECTION, NORMOCEPHALIC - Eye Exam Eye Exam: EOMI, Normal appearance, PERRL. absent: Conjunctival injection, Nystagmus, Periorbital swelling, Periorbital tenderness, Scleral icterus Pupil Exam: NORMAL ACCOMODATION, PERRL. absent: Fixed, Irregular, Miosis, Mydriatic, Unequal - ENT Exam ENT Exam: Mucous Membranes Moist, Normal Exam. absent: Mucous Membranes Dry, Normal External Ear Exam, Normal Oropharynx, TM's Normal Bilaterally - Neck Exam Neck exam: Positive for: Normal Inspection. Negative for: Full Rom, Lymphadenopathy, Meningismus, Tenderness, Thyromegaly - Respiratory Exam Respiratory Exam: Clear to Auscultation Bilateral, NORMAL BREATHING PATTERN. absent: Accessory Muscle Use, Chest Wall Tenderness, Decreased Breath Sounds, Prolonged Expiratory Phase, Rales, Rhonchi, Wheezes, Respiratory Distress, Stridor - Cardiovascular Exam Cardiovascular Exam: REGULAR RHYTHM, +S1, +S2. absent: Bradycardia, Tachycardia , Clicks, Diastolic murmur, Gallop, Irregular Rhythm, JVD, RRR, Rubs, +S4, Systolic Murmur - GI/Abdominal Exam GI & Abdominal Exam: Normal Bowel Sounds, Soft. absent: Bruit, Diminished Bowel Sounds, Distended, Firm, Guarding, Hernia, Hyperactive Bowel Sounds, Hypoactive Bowel Sounds, Mass, Organomegaly, Pulsatile Mass, Rebound, Rigid, Tenderness - Rectal Exam Rectal Exam: Deferred - Extremities Exam Extremities exam: Positive for: normal inspection. Negative for: calf tenderness, full ROM, joint swelling, normal capillary refill, pedal edema, tenderness, pedal pulses present - Back Exam Back exam: NORMAL INSPECTION. absent: CVA tenderness (L), CVA tenderness (R), FULL ROM, muscle spasm, paraspinal tenderness, rash noted, tenderness, vertebral tenderness - Neurological Exam Neurological exam: Alert, CN II-XII Intact, Normal Gait, Oriented x3, Reflexes Normal - Psychiatric Exam Psychiatric exam: Normal Affect, Normal Mood - Skin Skin Exam: Dry, Intact, Normal Color, Warm Results - Vital Signs Recent Vital Signs: Last Vital Signs Temp 98.2 F 02/26/18 17:16 Pulse 78 02/26/18 17:16 Resp 18 02/26/18 17:44 BP 137/75 02/26/18 17:16 Pulse Ox 100 02/26/18 17:16 - Labs Result Diagrams: 02/26/18 13:50 02/26/18 13:50 Labs: Laboratory Results - last 24 hr 02/26/18 02/26/18 02/26/18 13:50 13:50 13:50 WBC 8.5 RBC 3.49 L Hgb 8.9 L Hct 27.1 L MCV 77.6 L MCH 25.5 L MCHC 32.8 L RDW 14.2 Plt Count 271 PT 10.6 INR 1.0 Sodium Potassium Chloride Carbon Dioxide Anion Gap BUN Creatinine Est GFR ( Amer) Est GFR (Non-Af Amer) Random Glucose Calcium Total Bilirubin AST ALT Alkaline Phosphatase Total Protein Albumin Globulin Albumin/Globulin Ratio Urine Color Urine Clarity Urine pH Ur Specific [place] Urine Protein Urine Glucose (UA) Urine Ketones Urine Blood Urine Nitrate Urine Bilirubin Urine Urobilinogen Ur Leukocyte Esterase Urine RBC (Auto) Urine Microscopic WBC Ur Squamous Epith Cells Urine Bacteria Urine Opiates Screen Urine Methadone Screen Ur Barbiturates Screen Ur Phencyclidine Scrn Ur Amphetamines Screen U Benzodiazepines Scrn U Oth Cocaine Metabols U Cannabinoids Screen Alcohol, Quantitative Blood Type A NEGATIVE Blood Type Confirm Antibody Screen Negative BBK History Checked No verified bt 02/26/18 02/26/18 02/26/18 13:50 14:10 14:51 WBC RBC Hgb Hct MCV MCH MCHC RDW Plt Count PT INR Sodium 136 Potassium 3.5 L Chloride 109 H Carbon Dioxide 21 L Anion Gap 10 BUN 5 L Creatinine 0.8 Est GFR ( Amer) > 60 Est GFR (Non-Af Amer) > 60 Random Glucose 110 H Calcium 9.0 Total Bilirubin 0.4 AST 25 ALT 20 Alkaline Phosphatase 83 Total Protein 6.7 Albumin 3.2 L Globulin 3.5 Albumin/Globulin Ratio 0.9 L Urine Color Urine Clarity Urine pH Ur Specific [place] Urine Protein Urine Glucose (UA) Urine Ketones Urine Blood Urine Nitrate Urine Bilirubin Urine Urobilinogen Ur Leukocyte Esterase Urine RBC (Auto) Urine Microscopic WBC Ur Squamous Epith Cells Urine Bacteria Urine Opiates Screen Negative Urine Methadone Screen Negative Ur Barbiturates Screen Negative Ur Phencyclidine Scrn Negative Ur Amphetamines Screen Negative U Benzodiazepines Scrn Negative U Oth Cocaine Metabols Negative U Cannabinoids Screen Negative Alcohol, Quantitative < 10 Blood Type Blood Type Confirm Antibody Screen BBK History Checked 02/26/18 02/26/18 14:51 15:30 WBC RBC Hgb Hct MCV MCH MCHC RDW Plt Count PT INR Sodium Potassium Chloride Carbon Dioxide Anion Gap BUN Creatinine Est GFR ( Amer) Est GFR (Non-Af Amer) Random Glucose Calcium Total Bilirubin AST ALT Alkaline Phosphatase Total Protein Albumin Globulin Albumin/Globulin Ratio Urine Color Yellow Urine Clarity Cloudy Urine pH 6.0 Ur Specific [place] 1.053 H Urine Protein >=500 Urine Glucose (UA) 50 Urine Ketones Negative Urine Blood Small Urine Nitrate Negative Urine Bilirubin Negative Urine Urobilinogen 0.2-1.0 Ur Leukocyte Esterase Neg Urine RBC (Auto) 50 H Urine Microscopic WBC 29 H Ur Squamous Epith Cells 35 H Urine Bacteria Occ H Urine Opiates Screen Urine Methadone Screen Ur Barbiturates Screen Ur Phencyclidine Scrn Ur Amphetamines Screen U Benzodiazepines Scrn U Oth Cocaine Metabols U Cannabinoids Screen Alcohol, Quantitative Blood Type Blood Type Confirm A NEGATIVE Antibody Screen BBK History Checked - EKG Data EKG Interpreted by: Myself EKG shows normal: Sinus rhythm Rate: Normal Assessment & Plan (1) Syncope Status: Acute (2) Status: Acute (3) Hx of pre-eclampsia in prior , currently Status: Acute (4) Anemia Status: Acute - Assessment and Plan (Free Text) Plan: MONITOR ON TELE GIVE IV MAG MAY BE VASOVAGAL ECHO ORDERED TFT ORDERED AWAIT NEURO EVAL WILL FOLLOW THANKS. 75 MIN TOTAL CARE TIME.
--- NOTE | 2018-02-26 21:27 | MRI ---
APPROVED REPORT Date of service: 02/26/2018 <Conclusion> Normal sinus rhythm Lateral infarct, age undetermined Abnormal ECG
[2018-02-26 21:44] LABS: FERRITIN 5.9 ng/Ml (6.24-137.0)
[2018-02-27 06:01] LABS: HEMOGLOBIN 8.1 g/dL (12.0-16.0); MEAN CELL VOLUME 77.6 fl (81.0-99.0); MEAN CORPUSCULAR HEMOGLOBIN 25.5 pg (27.0-31.0); MEAN CORPUSCULAR HGB CONC 32.9 g/dL (33.0-37.0); RBC 3.18 Mil/uL (3.80-5.20); RED CELL DISTRIBUTION WIDTH 14.5 % (11.5-14.5); WHITE BLOOD COUNT 7.6 K/uL (4.8-10.8)
[2018-02-27 06:13] LABS: BLOOD UREA NITROGEN 2 mg/dl (7-17); CALCIUM 8.4 mg/dL (8.4-10.2); GFR NON-AFRICAN AMERICAN > 60
[2018-02-27 06:36] LABS: T3 1.13 nmol/L (1.49-2.60)
--- NOTE | 2018-02-27 09:29 | CP.PCM.PN ---
<Ela Rosales - Last Filed: 02/27/18 15:26> Subjective - Date & Time of Evaluation Date of Evaluation: 02/27/18 Time of Evaluation: 09:29 - Subjective Subjective: Patient is seen and examined at bedside. She is sitting comfortably eating breakfast. She reports feeling well and wants to go home. She denies weakness, urinary incontinence, seizure like activity, headache, change in vision, chest pain or shortness of breath. Objective - Vital Signs/Intake and Output Vital Signs (last 24 hours): Temp Pulse Resp BP Pulse Ox 98.0 F 80 20 139/76 100 02/27/18 07:41 02/27/18 07:41 02/27/18 07:41 02/27/18 07:41 02/27/18 07:41 - Medications Medications: Current Medications Ferrous Sulfate (Feosol) 325 mg PO DAILY [facility] Multivit/Folic Acid/Iron () 1 tab PO DAILY [facility] - Labs Labs: 02/27/18 04:20 02/27/18 04:20 PT 10.6 Seconds (9.8-13.1) 02/26/18 13:50 INR 1.0 02/26/18 13:50 - Constitutional Appears: Well, Non-toxic, No Acute Distress - Eye Exam Eye Exam: Normal appearance - ENT Exam ENT Exam: Mucous Membranes Moist, Normal Oropharynx - Respiratory Exam Respiratory Exam: Clear to Ausculation Bilateral, NORMAL BREATHING PATTERN. absent: Chest Wall Tenderness, Decreased Breath Sounds, Prolonged Expiratory Phase, Rales, Rhonchi, Wheezes, Respiratory Distress, Stridor - Cardiovascular Exam Cardiovascular Exam: REGULAR RHYTHM, RRR, +S1, +S2. absent: Diastolic murmur, Gallop, JVD, Rubs, +S4, Murmur - GI/Abdominal Exam GI & Abdominal Exam: Distended, Soft, Normal Bowel Sounds. absent: Firm, Guarding, Tenderness, Hernia, Organomegaly, Rebound - Extremities Exam Extremities Exam: Normal Inspection. absent: Calf Tenderness, Pedal Edema, Tenderness - Neurological Exam Neurological Exam: Alert, Awake, Oriented x3 (5/5 strength bilateral extremities. ) - Psychiatric Exam Psychiatric exam: Normal Affect - Skin Skin Exam: Dry, Intact, Normal Color, Warm Assessment and Plan (1) Syncope Status: Acute (2) New onset seizure Status: Acute (3) Anemia Status: Acute (4) DVT prophylaxis Status: Acute - Assessment and Plan (Free Text) Assessment: 27 y/o F with no PMHx presented with syncope episode admitted to rule out seizures. Plan: 1. Syncope acute Vasovagal vs Seizures vs Anemia in a woman or combination Neuro consult appreciated. Cardio consult appreciated, possibly a vaso-vagal response. aerospace stress engineer consult appreciated- MFM consulted. OB records from [place] are to be obtained (Record release signed by patient and faxed to [place]- pending OB records to be faxed to [facility] ) Echo pending 2. Seizure episode Suspected- As per family had tonic/clonic episode after Syncope Patient is S/P MG 1 g IV as per Neuro EEG ordered Neuro recs appreciated. Patient is 3. Anemia Unknown if chronic Patient is and with Hx of gastric bypass Sx Hgb 8.9 Vitamin b12- normal limits; folate- normal limits Ferritin: 5.9 - low. Continue Ferrous sulfate 325mg po daily 4. care at [place]- Records being obtained. Doesnt want family to be aware Currently taking vitamins Approximately 24 weeks [employer] recs 5. DVT prophylaxis SCD and Ambulation for now due to anemia <Lee Choi D - Last Filed: 02/27/18 16:17> Objective - Vital Signs/Intake and Output Vital Signs (last 24 hours): Temp Pulse Resp BP Pulse Ox 97.6 F 66 20 107/65 100 02/27/18 12:31 02/27/18 12:31 02/27/18 12:31 02/27/18 12:31 02/27/18 14:32 - Medications Medications: Current Medications Ferrous Sulfate (Feosol) 325 mg PO DAILY [facility] Last Admin: 02/27/18 10:17 Dose: 325 mg Multivit/Folic Acid/Iron () 1 tab PO DAILY [facility] Last Admin: 02/27/18 10:16 Dose: 1 tab - Labs Labs: 02/27/18 04:20 02/27/18 04:20 PT 10.6 Seconds (9.8-13.1) 02/26/18 13:50 INR 1.0 02/26/18 13:50 Attending/Attestation - Attestation I have personally seen and examined this patient.: Yes I have fully participated in the care of the patient.: Yes I have reviewed all pertinent clinical information, including history, physical exam and plan: Yes
--- NOTE | 2018-02-27 10:07 | CP.PCM.CON ---
History of Present Illness - History of Present Illness History of Present Illness: Patient is a @ 24 wks, history of previous at 35 wks for pre- eclampsia and gastric sleeve procedure 1 year ago, with 2 vasovagal episodes yesterday with questionable seizure activity. First episode pt was driving, felt warm flush, started to have some blurred vision and after parking the car and standing outside, had a loss of consciousness where she fell foward into the drivers side. Pt denies her abdomen or head having direct contact with anything. The patient was placed in the back seat of the car, was witnessed by mother to have rigidity with her hands and her eyes rolling back in her head. Pt was witnessed in [place] to have same episode. Patient reports she has experienced a few episodes of feeling flushed and close to passing out, however becomes diaphoretic or exposure to something cold will resolve the episode. Pt currently feels well, no ALATORRE, no blurry vision, no N/V, tolerating PO diet, no vaginal bleeding/leaking, +FM, no ctxns, no SOB, no further episodes since being admitted. CT of head currently negative, Brain MRI pending/neuro consultation pending. Vitals stable, BP 100-110/60s-70s, labs show patient has iron deficiency anemia, Hgb= 8.7-> 8.1. UA = >500 protein. Patient denies any other medical problems, previos surgery include cholecystectomy, gastric sleeve and . Pt denies allergies, taking vitamins. patient has a primary OB and an MFM she has consulted with in [place]. Patient has been compliant with care and ultrasounds, no antepartum issues noted up to this point. Past Patient History - Past Medical History & Family History Past Medical History?: Yes - Past Social History Smoking Status: Never Smoked Chewing Tobacco Use: No Cigar Use: No Alcohol: None Drugs: Denies Home Situation {Lives}: With Family Domestic Violence: Negative - CARDIAC Hx Cardiac Disorders: No - PULMONARY Hx Respiratory Disorders: No - NEUROLOGICAL Hx Neurological Disorder: No - HEENT Hx HEENT Problems: No - RENAL Hx Chronic Kidney Disease: No - ENDOCRINE/METABOLIC Hx Endocrine Disorders: No - HEMATOLOGICAL/ONCOLOGICAL Hx Blood Disorders: No - INTEGUMENTARY Hx Dermatological Problems: No - MUSCULOSKELETAL/RHEUMATOLOGICAL Hx Musculoskeletal Disorders: No Hx Falls: No - GASTROINTESTINAL Hx Gastrointestinal Disorders: No - GENITOURINARY/GYNECOLOGICAL Hx Genitourinary Disorders: No - PSYCHIATRIC Hx Psychophysiologic Disorder: No Hx Substance Use: No - SURGICAL HISTORY Hx Surgeries: Yes Hx Cholecystectomy: Yes Hx Gastric Bypass Surgery: Yes (sleeve Jul 2016) - ANESTHESIA Hx Anesthesia: Yes Hx Anesthesia Reactions: No Hx Malignant Hyperthermia: No Has any member of the family had a problem w/ anesthesia?: No Meds Allergies/Adverse Reactions: Allergies Allergy/AdvReac Type Severity Reaction Status Date / Time No Known Allergies Allergy Verified 02/26/18 13:35 - Medications Medications: Current Medications Ferrous Sulfate (Feosol) 325 mg PO DAILY [facility] Multivit/Folic Acid/Iron () 1 tab PO DAILY [facility] Physical Exam - Head Exam Head Exam: ATRAUMATIC - Respiratory Exam Respiratory Exam: Clear to Auscultation Bilateral, NORMAL BREATHING PATTERN - Cardiovascular Exam Cardiovascular Exam: REGULAR RHYTHM, +S1, +S2 - GI/Abdominal Exam GI & Abdominal Exam: Normal Bowel Sounds, Soft Additional comments: no rebound, non tender, 24 wk gravid uterus Results - Vital Signs Recent Vital Signs: Last Vital Signs Temp 98.0 F 02/27/18 07:41 Pulse 80 02/27/18 07:41 Resp 20 02/27/18 07:41 BP 139/76 02/27/18 07:41 Pulse Ox 100 02/27/18 07:41 - Labs Result Diagrams: 02/27/18 04:20 02/27/18 04:20 Labs: Laboratory Results - last 24 hr 02/26/18 02/26/18 02/26/18 13:50 13:50 13:50 WBC 8.5 RBC 3.49 L Hgb 8.9 L Hct 27.1 L MCV 77.6 L MCH 25.5 L MCHC 32.8 L RDW 14.2 Plt Count 271 PT 10.6 INR 1.0 Sodium Potassium Chloride Carbon Dioxide Anion Gap BUN Creatinine Est GFR ( Amer) Est GFR (Non-Af Amer) Random Glucose Calcium Magnesium Ferritin Total Bilirubin AST ALT Alkaline Phosphatase Total Protein Albumin Globulin Albumin/Globulin Ratio Vitamin B12 Free T4 Total T3 TSH 3rd Generation Urine Color Urine Clarity Urine pH Ur Specific [place] Urine Protein Urine Glucose (UA) Urine Ketones Urine Blood Urine Nitrate Urine Bilirubin Urine Urobilinogen Ur Leukocyte Esterase Urine RBC (Auto) Urine Microscopic WBC Ur Squamous Epith Cells Urine Bacteria Urine Opiates Screen Urine Methadone Screen Ur Barbiturates Screen Ur Phencyclidine Scrn Ur Amphetamines Screen U Benzodiazepines Scrn U Oth Cocaine Metabols U Cannabinoids Screen Alcohol, Quantitative Blood Type A NEGATIVE Blood Type Confirm Antibody Screen Negative BBK History Checked No verified bt 02/26/18 02/26/18 02/26/18 13:50 14:10 14:51 WBC RBC Hgb Hct MCV MCH MCHC RDW Plt Count PT INR Sodium 136 Potassium 3.5 L Chloride 109 H Carbon Dioxide 21 L Anion Gap 10 BUN 5 L Creatinine 0.8 Est GFR ( Amer) > 60 Est GFR (Non-Af Amer) > 60 Random Glucose 110 H Calcium 9.0 Magnesium Ferritin Total Bilirubin 0.4 AST 25 ALT 20 Alkaline Phosphatase 83 Total Protein 6.7 Albumin 3.2 L Globulin 3.5 Albumin/Globulin Ratio 0.9 L Vitamin B12 Free T4 Total T3 TSH 3rd Generation Urine Color Urine Clarity Urine pH Ur Specific [place] Urine Protein Urine Glucose (UA) Urine Ketones Urine Blood Urine Nitrate Urine Bilirubin Urine Urobilinogen Ur Leukocyte Esterase Urine RBC (Auto) Urine Microscopic WBC Ur Squamous Epith Cells Urine Bacteria Urine Opiates Screen Negative Urine Methadone Screen Negative Ur Barbiturates Screen Negative Ur Phencyclidine Scrn Negative Ur Amphetamines Screen Negative U Benzodiazepines Scrn Negative U Oth Cocaine Metabols Negative U Cannabinoids Screen Negative Alcohol, Quantitative < 10 Blood Type Blood Type Confirm Antibody Screen BBK History Checked 02/26/18 02/26/18 02/26/18 14:51 15:30 20:36 WBC RBC Hgb Hct MCV MCH MCHC RDW Plt Count PT INR Sodium Potassium Chloride Carbon Dioxide Anion Gap BUN Creatinine Est GFR ( Amer) Est GFR (Non-Af Amer) Random Glucose Calcium Magnesium Ferritin 5.9 L Total Bilirubin AST ALT Alkaline Phosphatase Total Protein Albumin Globulin Albumin/Globulin Ratio Vitamin B12 365 Free T4 Total T3 TSH 3rd Generation Urine Color Yellow Urine Clarity Cloudy Urine pH 6.0 Ur Specific [place] 1.053 H Urine Protein >=500 Urine Glucose (UA) 50 Urine Ketones Negative Urine Blood Small Urine Nitrate Negative Urine Bilirubin Negative Urine Urobilinogen 0.2-1.0 Ur Leukocyte Esterase Neg Urine RBC (Auto) 50 H Urine Microscopic WBC 29 H Ur Squamous Epith Cells 35 H Urine Bacteria Occ H Urine Opiates Screen Urine Methadone Screen Ur Barbiturates Screen Ur Phencyclidine Scrn Ur Amphetamines Screen U Benzodiazepines Scrn U Oth Cocaine Metabols U Cannabinoids Screen Alcohol, Quantitative Blood Type Blood Type Confirm A NEGATIVE Antibody Screen BBK History Checked 02/27/18 02/27/18 02/27/18 04:20 04:20 04:20 WBC 7.6 RBC 3.18 L Hgb 8.1 L Hct 24.7 L MCV 77.6 L MCH 25.5 L MCHC 32.9 L RDW 14.5 Plt Count 205 PT INR Sodium 138 Potassium 3.5 L Chloride 111 H Carbon Dioxide 26 Anion Gap 5 L BUN 2 L Creatinine 0.6 L Est GFR ( Amer) > 60 Est GFR (Non-Af Amer) > 60 Random Glucose 64 L Calcium 8.4 Magnesium 2.1 Ferritin Total Bilirubin AST ALT Alkaline Phosphatase Total Protein Albumin Globulin Albumin/Globulin Ratio Vitamin B12 Free T4 1.19 Total T3 1.13 L TSH 3rd Generation 1.26 Urine Color Urine Clarity Urine pH Ur Specific [place] Urine Protein Urine Glucose (UA) Urine Ketones Urine Blood Urine Nitrate Urine Bilirubin Urine Urobilinogen Ur Leukocyte Esterase Urine RBC (Auto) Urine Microscopic WBC Ur Squamous Epith Cells Urine Bacteria Urine Opiates Screen Urine Methadone Screen Ur Barbiturates Screen Ur Phencyclidine Scrn Ur Amphetamines Screen U Benzodiazepines Scrn U Oth Cocaine Metabols U Cannabinoids Screen Alcohol, Quantitative Blood Type Blood Type Confirm Antibody Screen BBK History Checked Assessment & Plan - Assessment and Plan (Free Text) Assessment: A/P 27 yo @ 24 wks with 2 vasovagal episodes yesterday, possible seizure episodes 1. Patient has been evaluated by myself and consulted MFM. Patient has normal BP , Plt = 201, Hgb = 8.1 - pt has iron deficient anemia, LFTs nml. The episode witnessed yesterday has a differential of an eclamptic episode vs vasovagal. CT head negative and no other etiology to explain seizure activity. UA = >500 protein 2. OB records to be obtained today 3. 2 heart tracings done of fetus were appropriate for 24 wks. No additional OB work up at this time 4. After neuro evaluation OB half section ironer to re-evaluate and add to plan of care with attendings/consultants involved 5. continue floor orders - Date & Time Date: 02/27/18 Time: 10:06
[2018-02-27] MEDS: Prenatal Multivit/Folic Acid/Iron Tab PO SCH (10:16)
[2018-02-27 13:00] LABS: FOLATE > 20.0 ng/mL
--- NOTE | 2018-02-27 16:37 | CARD ---
APPROVED REPORT Date of service: 02/27/2018 EXAM: Two-dimensional and M-mode echocardiogram with Doppler and color Doppler. Other Information Quality : AverageRhythm : NSR INDICATION Syncope Surgery/Intervention : Yes 2D DIMENSIONS IVSd1.10 (0.7-1.1cm)LVDd4.17 (3.9-5.9cm) LVOT Diameter1.94 (1.8-2.4cm)PWd1.09 (0.7-1.1cm) IVSs1.34 (0.8-1.2cm)LVDs2.84 (2.5-4.0cm) FS (%) 31.8 %PWs1.49 (0.8-1.2cm) M-Mode DIMENSIONS Left Atrium (MM)3.06 (2.5-4.0cm)IVSd1.00 (0.7-1.1cm) Aortic Root2.44 (2.2-3.7cm)LVDd5.07 (4.0-5.6cm) Aortic Cusp Exc.1.80 (1.5-2.0cm)PWd0.93 (0.7-1.1cm) IVSs1.29 cmFS (%) 37 % LVDs3.22 (2.0-3.8cm)PWs1.18 cm Aortic Valve AoV Peak Ozeisylq454.9cm/sAoV VTI21.7cmAO Peak GR.7mmHg LVOT Peak Uwilxoxx15.5cm/sLVOT VTI11.31cmAO Mean GR.4mmHg SUZANNE (VMAX)0.72ov6LZV (VTI)0.78cm2 Mitral Valve MV E Jbljpinc50.0cm/sMV DECEL GOBF197eaUM A Vfuisrcl55.8cm/s MV UMU86uvQ/A ratio1.3MVA (PHT)3.00cm2 TDI Lateral E' Peak V10.35cm/sMedial E' Peak V8.56cm/sE/Lateral E'5.3 E/Medial E'6.4 Pulmonary Valve PV Peak Pbkervnl011.1cm/s LEFT VENTRICLE The left ventricle is normal size. There is normal left ventricular wall thickness. The left ventricular systolic function appears grossly normal. Unable to estimate EF as no parasternal short axis of LV obtained No regional wall motion abnormalities noted.. The left ventricular diastolic function is normal. No left ventricle thrombus noted on this study. There is no ventricular septal defect visualized. There is no mass noted in the left ventricle. RIGHT VENTRICLE The right ventricle is normal size. There is normal right ventricular wall thickness. The right ventricular systolic function is normal. ATRIA The left atrium size is normal. The right atrium size is normal. The interatrial septum is intact with no evidence for an atrial septal defect. AORTIC VALVE The aortic valve is normal in structure. Trivial aortic regurgitation is present. There is no aortic valvular stenosis. MITRAL VALVE The mitral valve is normal in structure. There is no mitral valve stenosis. There is no mitral valve regurgitation noted. TRICUSPID VALVE The tricuspid valve is normal in structure. There is no tricuspid valve regurgitation noted. PULMONIC VALVE The pulmonary valve is normal in structure. There is no pulmonic valvular regurgitation. GREAT VESSELS The aortic root is normal in size. The ascending aorta is normal in size. The pulmonary artery is normal. The IVC is normal in size and collapses >50% with inspiration. PERICARDIAL EFFUSION There is no pericardial effusion. <Conclusion> Essentially normal transthoracic echocardiogram.
--- NOTE | 2018-02-27 17:57 | MRI ---
Date of service: 02/27/2018 PROCEDURE: MRI BRAIN WITHOUT CONTRAST HISTORY: new onset seizure COMPARISON: Noncontrast head CT from 02/26/2018 TECHNIQUE: Multiplanar, multisequence MR images of the brain were obtained without intravenous contrast enhancement. FINDINGS: HEMORRHAGE: None DWI: No evidence of an acute or early subacute infarction. BRAIN PARENCHYMA: Ramey-white matter differentiation is preserved. There is no mass, mass effect or abnormal extra-axial fluid collection. There is no territorial infarction. The midline sagittal structures are normal. VENTRICLES: There is mild age advanced global parenchymal volume loss and proportionate enlargement of the ventricles and cortical sulci. CRANIUM: There is normal bone marrow signal pattern. ORBITS: Grossly unremarkable. PARANASAL SINUSES/MASTOIDS: Predominantly clear. VASCULAR SYSTEM: There are normal signal voids in the larger intracranial arteries. OTHER FINDINGS: None. IMPRESSION: No acute intracranial abnormality. Mild age advanced global parenchymal volume loss.
[2018-02-28 06:53] LABS: HEMOGLOBIN 7.8 g/dL (12.0-16.0); MEAN CELL VOLUME 77.3 fl (81.0-99.0); MEAN CORPUSCULAR HGB CONC 33.6 g/dL (33.0-37.0); RBC 2.99 Mil/uL (3.80-5.20); RED CELL DISTRIBUTION WIDTH 14.4 % (11.5-14.5); WHITE BLOOD COUNT 7.5 K/uL (4.8-10.8)
[2018-02-28 07:16] LABS: BLOOD UREA NITROGEN 4 mg/dl (7-17); CALCIUM 8.3 mg/dL (8.4-10.2); GFR NON-AFRICAN AMERICAN > 60
[2018-02-28] MEDS ORDERED: Potassium Chloride 20 mEq ER Tab PO ONE (10:10)
--- NOTE | 2018-02-28 10:10 | CP.PCM.PN ---
Subjective - Date & Time of Evaluation Date of Evaluation: 02/28/18 Time of Evaluation: 10:10 - Subjective Subjective: Patient seen and examined at bedside. She is resting comfortably in her hospital bed in no acute distress. She is eating her breakfast and reports feeling well. She denies dizziness, seizure like activity, weakness, tingling, nausea, vo miting, headaches, vision changes or urinary incontinence. Objective - Vital Signs/Intake and Output Vital Signs (last 24 hours): Temp Pulse Resp BP Pulse Ox 97.8 F 71 18 113/70 95 02/28/18 06:30 02/28/18 06:30 02/28/18 06:30 02/28/18 06:30 02/28/18 06:30 - Medications Medications: Current Medications Ferrous Sulfate (Feosol) 325 mg PO DAILY [facility] Last Admin: 02/27/18 10:17 Dose: 325 mg Multivit/Folic Acid/Iron () 1 tab PO DAILY [facility] Last Admin: 02/27/18 10:16 Dose: 1 tab - Labs Labs: 02/28/18 04:20 02/28/18 04:20 PT 10.6 Seconds (9.8-13.1) 02/26/18 13:50 INR 1.0 02/26/18 13:50 - Constitutional Appears: Well, Non-toxic, No Acute Distress - Eye Exam Eye Exam: Normal appearance - ENT Exam ENT Exam: Mucous Membranes Moist, Normal Oropharynx - Respiratory Exam Respiratory Exam: Clear to Ausculation Bilateral, NORMAL BREATHING PATTERN. absent: Decreased Breath Sounds, Rales, Rhonchi, Wheezes, Respiratory Distress - Cardiovascular Exam Cardiovascular Exam: REGULAR RHYTHM, RRR, +S1, +S2. absent: Irregular Rhythm, JVD, Rubs, Murmur - GI/Abdominal Exam GI & Abdominal Exam: Distended, Soft, Normal Bowel Sounds. absent: Firm, Guarding, Rigid, Tenderness, Diminished Bowel Sounds, Hernia, Mass, Rebound - Extremities Exam Extremities Exam: Normal Capillary Refill, Normal Inspection. absent: Calf Tenderness, Joint Swelling, Pedal Edema, Tenderness (+2 dorsalis pedis bilaterally) - Neurological Exam Neurological Exam: Alert, Awake, Oriented x3 (5/5 strength bilaterally in all extremities. ) - Psychiatric Exam Psychiatric exam: Normal Affect - Skin Skin Exam: Dry, Intact, Normal Color, Warm Assessment and Plan (1) Syncope Status: Acute (2) New onset seizure Status: Acute (3) Anemia Status: Acute (4) DVT prophylaxis Status: Acute - Assessment and Plan (Free Text) Assessment: 27 y/o F with no PMHx presented with syncope episode admitted to rule out seizures and anemia. Plan: 1. Syncope acute Vasovagal vs Seizures vs Anemia in a woman or combination Neuro consult appreciated. Cardio consult appreciated, possibly a vaso-vagal response. hospital nurse consult appreciated- MFM consulted. OB records from [facility] are to be obtained (Record release signed by patient and faxed to [facility]- pending OB records to be faxed to [facility] ) Echo pending 2. Seizure episode Suspected- As per family had tonic/clonic episode after Syncope Patient is S/P MG 1 g IV as per Neuro EEG pending read. Neuro recs appreciated. Patient is 3. Anemia Unknown if chronic Patient is and with Hx of gastric bypass Sx Hgb 8.9 Vitamin b12- normal limits; folate- normal limits Ferritin: 5.9 - low. Ferrous sulfate 325mg changed from daily to BID 4. Hypokalemia - Replace with KCL 40 mEq po. - Follow Potassium. 5. care at [place]- Records being obtained. Doesnt want family to be aware Currently taking vitamins Approximately 24 weeks F/U [employer]MOD[employer]OR recs 6. DVT prophylaxis SCD and Ambulation for now due to anemia
[2018-02-28] MEDS: Prenatal Multivit/Folic Acid/Iron Tab PO SCH (11:17)
--- NOTE | 2018-02-28 13:17 | CP.PCM.PN ---
Addendum entered and electronically signed by Tiffany Hatch MD 02/28/18 14:41: Patient does not want parents/family to be aware of . Healthcare providers aware and taking necessary precautions. Original Note: <Tiffany Hatch - Last Filed: 02/28/18 14:22> Subjective - Date & Time of Evaluation Date of Evaluation: 02/28/18 Time of Evaluation: 10:00 - Subjective Subjective: OBGYN progress note: Patient seen and evaluated at bedside. Sitting in bed comfortably. Patient denies abdominal pain, vaginal bleeding. She states that she does not want family to know about . Labs, charts, and nurse notes reviewed. Objective - Vital Signs/Intake and Output Vital Signs (last 24 hours): Temp Pulse Resp BP Pulse Ox 97.8 F 71 18 113/70 95 02/28/18 06:30 02/28/18 06:30 02/28/18 06:30 02/28/18 06:30 02/28/18 06:30 - Medications Medications: Current Medications Ferrous Sulfate (Feosol) 325 mg PO BID [facility] Multivit/Folic Acid/Iron () 1 tab PO DAILY [facility] Last Admin: 02/28/18 11:17 Dose: 1 tab - Labs Labs: 02/28/18 04:20 02/28/18 04:20 PT 10.6 Seconds (9.8-13.1) 02/26/18 13:50 INR 1.0 02/26/18 13:50 - Constitutional Appears: Well, No Acute Distress - Respiratory Exam Respiratory Exam: Clear to Ausculation Bilateral, NORMAL BREATHING PATTERN - Cardiovascular Exam Cardiovascular Exam: REGULAR RHYTHM, +S1, +S2 - GI/Abdominal Exam GI & Abdominal Exam: Soft, Normal Bowel Sounds. absent: Tenderness - Extremities Exam Extremities Exam: Normal Inspection. absent: Calf Tenderness, Tenderness - Neurological Exam Neurological Exam: Alert, Awake, Oriented x3 - Psychiatric Exam Psychiatric exam: Normal Affect, Normal Mood Assessment and Plan - Assessment and Plan (Free Text) Assessment: Assessment and Plan: 27 y/o female [place] 30.0wks based on first trimester u/s (SOFYA ) w/ possible seizure disorder -Patient to be evaluated by Neuro, Dr. Monique, recs appreciated -Patient noted to have proteinuria (=>500), will order 24 hour urine collection to be followed up as outpatient by patient's OB, Dr. Brown -Patient's OB was phoned and informed of patient's hospitalization. Her records were faxed over and reviewed. -Patient has hx of pre-eclampsia w/ prior ; blood pressure has been stable during this hospitalization -FHR w/ bedside doppler 148 bmp -Patient advised to follow up w/ OB within 1-3 days 2:27PM: patient's OB phoned again and informed that patient is cleared by Neuro for discharge and will need to be scheduled for an outpatient f/u appointment -Case discussed w/ attending physician, Dr. Mahajan. <Gurinder Mahajan - Last Filed: 03/01/18 07:58> Objective - Vital Signs/Intake and Output Vital Signs (last 24 hours): Temp Pulse Resp BP Pulse Ox 97.5 F L 81 16 111/69 96 02/28/18 16:10 02/28/18 16:10 02/28/18 16:10 02/28/18 16:10 02/28/18 16:10 - Labs Labs: 02/28/18 04:20 02/28/18 04:20 PT 10.6 Seconds (9.8-13.1) 02/26/18 13:50 INR 1.0 02/26/18 13:50 Assessment and Plan - Assessment and Plan (Free Text) Plan: On rounds, i saw this patient (without family around). I spoke with her and her EDC (discussed with nurse Saini). Pt agreed. She will do her 24h urine collection and arrangements are being made for her to be seen this week by PMD. Copies of her testing was given to pt for her PMD. Pre-eclampsia warning given
--- NOTE | 2018-02-28 15:37 | CP.PCM.PN ---
Subjective - Date & Time of Evaluation Date of Evaluation: 02/28/18 Time of Evaluation: 15:37 Objective - Vital Signs/Intake and Output Vital Signs (last 24 hours): Temp Pulse Resp BP Pulse Ox 97.8 F 71 18 113/70 95 02/28/18 06:30 02/28/18 06:30 02/28/18 06:30 02/28/18 06:30 02/28/18 06:30 - Medications Medications: Current Medications Ferrous Sulfate (Feosol) 325 mg PO BID [facility] Multivit/Folic Acid/Iron () 1 tab PO DAILY [facility] Last Admin: 02/28/18 11:17 Dose: 1 tab - Labs Labs: 02/28/18 04:20 02/28/18 04:20 PT 10.6 Seconds (9.8-13.1) 02/26/18 13:50 INR 1.0 02/26/18 13:50 Assessment and Plan (1) Syncope Status: Acute (2) Status: Acute (3) Hx of pre-eclampsia in prior , currently Status: Acute (4) Anemia Status: Acute
[2018-02-28] MEDS ORDERED: Potassium Chloride 20 mEq/15 ml LIQ UD PO ONE (15:38)
[2018-02-28 16:10] VITALS: BP 111/69; PULSE 81; RESP 16; TEMP 97.5; O2SAT 96
--- NOTE | 2018-02-28 16:35 | CP.PCM.DIS ---
Provider - Provider Date of Admission: 02/26/18 15:38 Attending physician: Lee Choi MD Consults: Neurology - Dr. Hernandez SUBCONTRACTS MANAGER- Dr. Mahajan Cardiology: Dr. Iyer. Time Spent in preparation of Discharge (in minutes): 30 Diagnosis - Discharge Diagnosis (1) Syncope Status: Acute (2) New onset seizure Status: Acute (3) Anemia Status: Acute (4) DVT prophylaxis Status: Acute Hospital Course - Lab Results Lab Results: Most Recent Lab Values WBC 7.5 K/uL (4.8-10.8) 02/28/18 04:20 RBC 2.99 Mil/uL (3.80-5.20) L 02/28/18 04:20 Hgb 7.8 g/dL (12.0-16.0) L 02/28/18 04:20 Hct 23.1 % (34.0-47.0) L 02/28/18 04:20 MCV 77.3 fl (81.0-99.0) L 02/28/18 04:20 MCH 26.0 pg (27.0-31.0) L 02/28/18 04:20 MCHC 33.6 g/dL (33.0-37.0) 02/28/18 04:20 RDW 14.4 % (11.5-14.5) 02/28/18 04:20 Plt Count 203 K/uL (130-400) 02/28/18 04:20 PT 10.6 Seconds (9.8-13.1) 02/26/18 13:50 INR 1.0 02/26/18 13:50 Sodium 136 mmol/l (132-148) 02/28/18 04:20 Potassium 3.5 MMOL/L (3.6-5.0) L 02/28/18 04:20 Chloride 111 mmol/L (98-107) H 02/28/18 04:20 Carbon Dioxide 22 mmol/L (22-30) 02/28/18 04:20 Anion Gap 7 (10-20) L 02/28/18 04:20 BUN 4 mg/dl (7-17) L 02/28/18 04:20 Creatinine 0.5 mg/dl (0.7-1.2) L 02/28/18 04:20 Est GFR ( Amer) > 60 02/28/18 04:20 Est GFR (Non-Af Amer) > 60 02/28/18 04:20 Random Glucose 63 mg/dL (65-105) L 02/28/18 04:20 Calcium 8.3 mg/dL (8.4-10.2) L 02/28/18 04:20 Magnesium 2.1 MG/DL (1.6-2.3) 02/27/18 04:20 Ferritin 5.9 ng/Ml (6.24-137.0) L 02/26/18 20:36 Total Bilirubin 0.4 mg/dl (0.2-1.3) 02/26/18 13:50 AST 25 U/L (14-36) 02/26/18 13:50 ALT 20 U/L (9-52) 02/26/18 13:50 Alkaline Phosphatase 83 U/L (38-126) 02/26/18 13:50 Troponin I < 0.0120 ng/mL (0.00-0.120) 02/27/18 10:58 Total Protein 6.7 G/DL (6.3-8.2) 02/26/18 13:50 Albumin 3.2 g/dL (3.5-5.0) L 02/26/18 13:50 Globulin 3.5 gm/dL (2.2-3.9) 02/26/18 13:50 Albumin/Globulin Ratio 0.9 (1.0-2.1) L 02/26/18 13:50 Vitamin B12 365 pg/mL (239-931) 02/26/18 20:36 Folate > 20.0 ng/mL 02/26/18 20:36 Free T4 1.19 ng/dL (0.78-2.19) 02/27/18 04:20 Total T3 1.13 nmol/L (1.49-2.60) L 02/27/18 04:20 TSH 3rd Generation 1.26 mIU/ML (0.46-4.68) 02/27/18 04:20 Urine Color Yellow (YELLOW) 02/26/18 14:51 Urine Clarity Cloudy (Clear) 02/26/18 14:51 Urine pH 6.0 (5.0-8.0) 02/26/18 14:51 Ur Specific Sigel 1.053 (1.003-1.030) H 02/26/18 14:51 Urine Protein >=500 mg/dL (NEGATIVE) 02/26/18 14:51 Urine Glucose (UA) 50 mg/dL (Normal) 02/26/18 14:51 Urine Ketones Negative mg/dL (NEGATIVE) 02/26/18 14:51 Urine Blood Small (NEGATIVE) 02/26/18 14:51 Urine Nitrate Negative (NEGATIVE) 02/26/18 14:51 Urine Bilirubin Negative (NEGATIVE) 02/26/18 14:51 Urine Urobilinogen 0.2-1.0 mg/dL (0.2-1.0) 02/26/18 14:51 Ur Leukocyte Esterase Neg Maury/uL (Negative) 02/26/18 14:51 Urine RBC (Auto) 50 /hpf (0-3) H 02/26/18 14:51 Urine Microscopic WBC 29 /hpf (0-5) H 02/26/18 14:51 Ur Squamous Epith Cells 35 /hpf (0-5) H 02/26/18 14:51 Urine Bacteria Occ (<OCC) H 02/26/18 14:51 Urine Opiates Screen Negative (NEGATIVE) 02/26/18 14:51 Urine Methadone Screen Negative (NEGATIVE) 02/26/18 14:51 Ur Barbiturates Screen Negative (NEGATIVE) 02/26/18 14:51 Ur Phencyclidine Scrn Negative (NEGATIVE) 02/26/18 14:51 Ur Amphetamines Screen Negative (NEGATIVE) 02/26/18 14:51 U Benzodiazepines Scrn Negative (NEGATIVE) 02/26/18 14:51 U Oth Cocaine Metabols Negative (NEGATIVE) 02/26/18 14:51 U Cannabinoids Screen Negative (NEGATIVE) 02/26/18 14:51 Alcohol, Quantitative < 10 mg/dl (0-10) 02/26/18 14:10 Blood Type A NEGATIVE 02/26/18 13:50 Blood Type Confirm A NEGATIVE 02/26/18 15:30 Antibody Screen Negative 02/26/18 13:50 BBK History Checked No verified bt 02/26/18 13:50 - Hospital Course Hospital Course: 27 y/o female with no significant PMHx was brought to the ED via EMS for evaluation of a syncope episode and suspected seizures. Patient was driving when she started feeling lightheaded and feeling like she was going to pass out. Patient reports she pulled over and family called 911. She attempted to walk and lie down in the back seat but passed out. Parent tried to help her inside the c ar and mother states she had a short episode of whole body tremulousness, rigidity and her eyes rolled back. Patient reports of having similar episode of syncope in the past in the past but denies hx of seizures. Patient states she is approximately 24 weeks and has not had care yet, she doesn't want her parent to know about her status. On arrival to the ED patient appeared diaphoretic and lethargic but was arousable to verbal stimuli. Patient did have urinary incontinence while in the ED. At the time of exam patient is asymptomatic and has no complains. She is taking vitamins but denies any other medications. ER course: VS remarkable for HR around 100s, BP 116/59 labs remarkable for hgb 8.9, UTox neg, UA + for WBC, RBC, Bact, spec gravity 1053, K 3.5 CT abd pelvis: Uterus gravidus CT head unremarkable Neuro consulted: Mg IV 1g ordered Medications given: IV fluid bolus NS; Narcan; Ceftriaxone and Iron PO PMHX: Denies SXHx: Gastric bypass Sx in 2017 SHx: Denies ETOH,drugs or Tobacco FHx: Grandfather Hx of seizures OBHx: Patient is around 24 weeks with no care. Unsure about LMP Floor course: Patient was admitted to telemetry for observation. She was vitally stable during her hospital course. She denied any complaints during her stay and her syncope had resolved. MRI did not demonstrate acute intracranial abnormality. OB/ SPLITTER HAND, Neurology and cardiology were consulted. Patient's syncope could have been Vaso-vagal. SUBCONTRACTS MANAGER advised to collect 24 hour urine protein which could be follow as outpatient. Patient will follow up with neurology and her OB. Discharge Exam - Head Exam Head Exam: ATRAUMATIC - Eye Exam Eye Exam: Normal appearance - ENT Exam ENT Exam: Mucous Membranes Moist - Respiratory Exam Respiratory Exam: Clear to PA & Lateral, NORMAL BREATHING PATTERN. absent: Prolonged Expiratory Phase, Rales, Rhonchi, Wheezes, Respiratory Distress, Stridor - Cardiovascular Exam Cardiovascular Exam: REGULAR RHYTHM, +S1, +S2. absent: Gallop, JVD, RRR, Rubs, +S4, Systolic Murmur Additional comments: +2 radial, dorsalis pedis and tibial pulses. - GI/Abdominal Exam GI & Abdominal Exam: Normal Bowel Sounds, Soft. absent: Distended, Firm, Guarding, Mass, Organomegaly, Rebound, Rigid, Tenderness - Extremities Exam Extremities exam: normal inspection - Neurological Exam Neurological exam: Alert, Oriented x3 - Psychiatric Exam Psychiatric exam: Normal Affect - Skin Skin Exam: Dry, Intact, Normal Color, Warm Discharge Plan - Follow Up Plan Condition: GOOD Disposition: HOME/ ROUTINE Instructions: Anemia Caused by Low Iron, Adult (DC), Syncope (Fainting) (DC) Additional Instructions: follow up with pmd in 1 week Referrals: Yary Barton MD [Staff Provider] - Dorita Rudolph DO [Non-Staff] - Reese Hernandez MD [Medical Doctor] -
== END 2018-02-28 17:55 | disposition home or self-care (01) | DRG 781 ==
LOC: H.ER 13:31 → H.ERHOLD 15:38 → H.TEL 17:28
PROC: 4A1HXCZ Monitoring of Products of Conception, Cardiac Rate, External Approach (ICD-10-PCS; principal; 2018-02-26)
DX: O26.892 Other specified pregnancy related conditions, second trimester (principal); R56.9 Unspecified convulsions; D50.9 Iron deficiency anemia, unspecified; O99.012 Anemia complicating pregnancy, second trimester; R55 Syncope and collapse; O09.32 Supervision of pregnancy with insufficient antenatal care, second trimester; O99.842 Bariatric surgery status complicating pregnancy, second trimester; Z3A.24 24 weeks gestation of pregnancy